=== PATIENT | male | born 1995 | race Caucasian/White ===

== ENCOUNTER 2016-12-19 18:04 | Emergency (ER) | payer OTHER ==
[~2016-12-19] VITALS: Ht 193 cm; Wt 104.1 kg
[2016-12-19 18:20] VITALS: Ht 193 cm; Wt 104.1 kg
--- NOTE | 2016-12-19 19:12 | EMERGENCY ROOM VISIT NOTE ---
History Report prepared by Althea: Jackson Leone Under the Supervision of: Dr. Sil St M.D. First contact with patient: 18:55 Chief Complaint: SORETHROAT Stated Complaint: THROAT BLEEDING History of Present Illness The patient is a 21 year old male who presents to the Emergency Room with complaints of persistent throat bleeding that started prior to arrival. He says that he is not sure when it started, but just noticed it this evening. The patient adds that he has had a sore throat for the past 3 days with some nasal congestion. He says that he has felt very uncomfortable the past few days, but has not taken his temperature. He denies any nose bleeding or any other noted bleeding other than his throat. The patient says that he has taken DayQuil. Source of History: patient Onset: Prior to arrival Position: throat Quality: other (bleeding) Timing: other (persistent) Associated Symptoms: + sorethroat Note: Associated symptoms: Nasal congestion. Denies nose bleed or any other bleeding. Review of Systems See HPI for pertinent positives & negatives. A total of 10 systems reviewed and were otherwise negative. Past Medical & Surgical Medical Problems: (1) No chronic diseases present Family History No pertinent family history Social History Smoking Status: Never Smoker Smokeless Tobacco Use: No Marital Status: single Housing Status: lives with roommate Occupation Status: [employer] student Current/Historical Medications Scheduled Menthol (Mouth-Throat) (Ricola), 1 JONN PO PRN Scheduled PRN Jlipewectszdo-Co-Tc W/ Apap (Vicks Dayquil Severe Cold), 1 DOSE PO BID PRN for cold symptoms Allergies Coded Allergies: Grass (Verified Allergy, Mild, ITCH, 04/06/15) Physical Exam Vital Signs Date Time Temp Pulse Resp B/P (MAP) Pulse Ox O2 Delivery O2 Flow Rate FiO2 12/19/16 19:33 12/19/16 19:31 36.8 77 16 136/86 98 Room Air 12/19/16 18:20 98 Room Air 12/19/16 18:20 36.8 78 20 144/88 98 Room Air Physical Exam Vital signs reviewed. General: Well-appearing 21 year old male, in no significant distress. HEENT: No scleral icterus, PERRLA, neck supple. Ears impacted by cerumen bilaterally. No acute tonsillar swelling or exudate. Cardiovascular: Regular rate and rhythm, no extra sounds. Pulmonary: Clear to auscultation bilaterally, normal work of breathing. Abdomen: Soft, nontender, nondistended, positive bowel sounds. Musculoskeletal: Atraumatic, no peripheral edema. Neurologic: Patient awake alert and oriented x 3, full strength in all 4 extremities. Cranial nerves 2 through 12 grossly intact. Skin: Warm, dry, no rash Medical Decision & Procedures ED Course 1906: Past medical records reviewed. The patient was evaluated in room B4B. A complete history and physical examination was performed. 193: Upon reevaluation, the patient appeared to have improvement of his symptoms. I discussed findings with him. He verbalized agreement of the treatment plan. He was discharged home. Medical Decision Differential diagnosis: Etiologies such as viral syndrome, tonsillitis, streptococcal pharyngitis, mononucleosis, peritonsillar abscess, retropharyngeal abscess, otitis, pneumonia , influenza, as well as others were entertained. This patient was evaluated and appeared to be in no significant distress. There is dark blood adherent to the posterior oropharynx. There is no active bleeding. Rapid strep swab is negative. I suspect the patient is having some mucosal dryness and had a small posterior epistaxis. He was advised to use saline nasal spray. He will use Tylenol and ibuprofen as needed for pain. He will continue ice water gargles if the bleeding reoccurs. Patient will follow- up with [facility] for reevaluation next week. He will return to the ER for worsening of symptoms or any medical concerns. Medication Reconcilliation Current Medication List: was personally reviewed by me Blood Pressure Screening Patient's blood pressure: Elevated blood pressure Blood pressure disposition: Elevated BP felt to be situational Impression Primary Impression: Posterior epistaxis Scribe Attestation The scribe's documentation has been prepared under my direction and personally reviewed by me in its entirety. I confirm that the note above accurately reflects all work, treatment, procedures, and medical decision making performed by me. Departure Information Dispostion Home / Self-Care Referrals No Doctor, Assigned (PCP) [facility] Patient Instructions My [facility] Additional Instructions Diagnosis: Posterior oropharyngeal bleed/epistaxis Please gargle with cold water every hour while awake. Due to his for the next 12 hours. Saline nasal spray to each nostril, 2 sprays every 4 hours as needed to keep the nose moist. Monitor for signs of infection including fever, increased pain or any medical concerns. Follow-up with [facility] for reevaluation this week if symptoms persist. Return to the emergency department for worsening of symptoms or any medical concerns.
[2016-12-19] MEDS ORDERED: PHEN1LIQ93 PO (19:23)
[2016-12-19] MEDS ORDERED: MENT1LOZ4 PO (19:23)
[2016-12-19 19:31] VITALS: BP 136/86; PULSE 77; TEMP 36.8; O2SAT 98
== END 2016-12-19 20:00 | disposition home or self-care (01) ==
LOC: C.EDB 18:06
DX: R04.0 Epistaxis (principal); H61.23 Impacted cerumen, bilateral

== ENCOUNTER 2017-04-12 16:57 | Emergency (ER) | payer OTHER ==
[~2017-04-12] VITALS: Ht 193 cm; Wt 98.0 kg
[~2017-04-12 16:57] MED LIST: MENT1LOZ4 PO
[2017-04-12 16:58] VITALS: Ht 193 cm; Wt 98.0 kg
[2017-04-12] MEDS ORDERED: KETOROLAC TROMETHAMINE 30 MG/ML VIAL IV STA (17:06)
[2017-04-12] MEDS ORDERED: DEXAMETHASONE SOD INJ 4 MG/ML VIAL IV STA (17:06)
[2017-04-12] MEDS ORDERED: DiphenhydrAMINE HCL 50 MG/ML VIAL IV STA (17:06)
[2017-04-12] MEDS ORDERED: PROCHLORPERAZINE 5 MG/ML 2 ML VIAL IV STA (17:06)
[2017-04-12] MEDS ORDERED: SODIUM CHLORIDE 0.9% 1000ML 1,000 ML IV ONE (17:15)
[2017-04-12 17:28] LABS: BASO % 0.1 %; BASO ABS # 0.01 K/uL (0-0.2); EOS % 0.3 %; EOS ABS # 0.04 K/uL (0-0.5); HEMATOCRIT 45.2 % (42-52); IG# 0.03 K/uL (0.00-0.02); LYMPH % 9.6 %; LYMPH ABS # 1.41 K/uL (1.2-3.4); MEAN CELL VOLUME 92.1 fL (80-100); MEAN CORPUSCULAR HEMOGLOBIN 32.6 pg (25-34); MEAN CORPUSCULAR HGB CONC 35.4 g/dl (32-36); MEAN PLATELET VOLUME 9.4 fL (7.4-10.4); MONO % 6.1 %; NEUT % 83.7 %; NEUT ABS # 12.35 K/uL (1.4-6.5); PLATELET COUNT 278 K/uL (130-400); RED CELL DISTRIBUTION WIDTH CV 12.2 % (11.5-14.5); RED CELL DISTRIBUTION WIDTH SD 41.1 fL (36.4-46.3); WHITE BLOOD COUNT 14.74 K/uL (4.8-10.8)
--- NOTE | 2017-04-12 17:28 | EMERGENCY ROOM VISIT NOTE ---
History First contact with patient: 17:02 Chief Complaint: HEADACHE Stated Complaint: HEADACHE History of Present Illness The patient is a 21 year old male who presents to the Emergency Room with complaints of severe, intermittent headache over the last several days. The patient woke up with a headache 3 days ago. It was behind his left eye and rated a 2/10. He took some ibuprofen, which almost completely took the headache away. The following day, it returned. It again improved with ibuprofen. The patient developed a severe headache throughout the day today. He was first seen at urgent care, and sent here for further evaluation. He did have nausea and 1 episode of vomiting. He denies any recent illnesses, fever or chills. No recent travel. He denies any known sick contacts. He does not have a history of migraines. He denies any photophobia. Review of Systems 10 system review performed and negative unless noted in HPI or below Past Medical/Surgical History Medical Problems: (1) No chronic diseases present Family History No pertinent family history Social History Smoking Status: Never Smoker Marital Status: single Housing Status: lives with roommate Occupation Status: [employer] Current/Historical Medications Scheduled Amoxicillin & Pot Clavulanate (Augmentin 875-125 mg), 1 TAB PO BID Saline (Saline Nasal [place]), 1 SPRAY NA Q6H Sumatriptan Succinate (Imitrex), 1 TAB PO Q8H Scheduled PRN Ysrktjsyoyiem-Ml-Rx W/ Apap (Vicks Dayquil Severe Cold), 1 DOSE PO UD PRN for Cold Symptoms Physical Exam Vital Signs Date Time Temp Pulse Resp B/P (MAP) Pulse Ox O2 Delivery O2 Flow Rate FiO2 04/12/17 19:07 36.6 68 16 124/68 98 Room Air 04/12/17 17:54 70 16 128/77 98 Room Air 04/12/17 16:58 36.6 85 16 144/92 97 Room Air Physical Exam VITALS: Vitals are noted on the nurse's note and reviewed by myself. Vital signs stable. GENERAL: 21-year-old male, in obvious discomfort, SKIN: The skin was without rashes, erythema, edema, or bruising. HEAD: Normocephalic atraumatic. EARS: External auditory canals clear, tympanic membranes pearly juares without erythema or effusion bilaterally. EYES: Pupils equal round and reactive to light and accommodation. Conjunctivae without injection, sclerae without icterus. Extraocular movements intact. MOUTH: Mucous membranes moist. Tonsils are not enlarged. Pharynx without erythema or exudate. Uvula midline. Airway patent. Tongue does not deviate. NECK: Supple without nuchal rigidity. No lymphadenopathy. Cervical spine is nontender. No JVD. HEART: Regular rate and rhythm without murmurs gallops or rubs. LUNGS: Clear to auscultation bilaterally without wheezes, rales or rhonchi. No accessory muscle use. ABDOMEN: Positive bowel sounds x 4.Soft, nontender, without organomegaly. No guarding or rebound tenderness. MUSCULOSKELETAL: No muscle atrophy, erythema, or edema noted. Strength 5/5 throughout. NEURO: Patient was alert and oriented to person place and time. Cranial nerves grossly intact. Cerebellar function intact. Normal sensation to touch. No focal neurological deficits. Medical Decision & Procedures ER Provider Diagnostic Interpretation: CT head without contrast IMPRESSION: 1. No acute intracranial abnormality. 2. Evidence of acute sinusitis extensively involving the ethmoid air cells as well as the right sphenoid sinus and left frontal sinus. Ethmoid air cell septations appear somewhat indistinct, however, this finding is equivocal. If the patient is immunocompromised, this could raise concern for acute invasive fungal sinusitis. Electronically signed by: Yariel Mathew M.D. 04/12/2017 5:50 PM Dictated Date/Time: 04/12/2017 5:47 PM The status of this report is Signed. Draft = Not yet reviewed or approved by Radiologist. Signed = Reviewed and approved by Radiologist. Laboratory Results 04/12/17 17:15 Red Blood Count 4.91, Mean Corpuscular Volume 92.1, Mean Corpuscular Hemoglobin 32.6, Mean Corpuscular Hemoglobin Concent 35.4, Mean Platelet Volume 9.4, Neutrophils (%) (Auto) 83.7, Lymphocytes (%) (Auto) 9.6, Monocytes (%) (Auto) 6.1, Eosinophils (%) (Auto) 0.3, Basophils (%) (Auto) 0.1, Neutrophils # (Auto) 12.35, Lymphocytes # (Auto) 1.41, Monocytes # (Auto) 0.90, Eosinophils # (Auto) 0.04, Basophils # (Auto) 0.01 04/12/17 17:15 Test 04/12/17 17:15 White Blood Count 14.74 K/uL (4.8-10.8) Red Blood Count 4.91 M/uL (4.7-6.1) Hemoglobin 16.0 g/dL (14.0-18.0) Hematocrit 45.2 % (42-52) Mean Corpuscular Volume 92.1 fL (80-100) Mean Corpuscular Hemoglobin 32.6 pg (25-34) Mean Corpuscular Hemoglobin Concent 35.4 g/dl (32-36) Platelet Count 278 K/uL (130-400) Mean Platelet Volume 9.4 fL (7.4-10.4) Neutrophils (%) (Auto) 83.7 % Lymphocytes (%) (Auto) 9.6 % Monocytes (%) (Auto) 6.1 % Eosinophils (%) (Auto) 0.3 % Basophils (%) (Auto) 0.1 % Neutrophils # (Auto) 12.35 K/uL (1.4-6.5) Lymphocytes # (Auto) 1.41 K/uL (1.2-3.4) Monocytes # (Auto) 0.90 K/uL (0.11-0.59) Eosinophils # (Auto) 0.04 K/uL (0-0.5) Basophils # (Auto) 0.01 K/uL (0-0.2) RDW Standard Deviation 41.1 fL (36.4-46.3) RDW Coefficient of Variation 12.2 % (11.5-14.5) Immature Granulocyte % (Auto) 0.2 % Immature Granulocyte # (Auto) 0.03 K/uL (0.00-0.02) Erythrocyte Sedimentation Rate 24 mm/hr (0-14) Anion Gap 5.0 mmol/L (3-11) Est Creatinine Clear Calc Drug Dose 154.2 ml/min Estimated GFR () 135.5 Estimated GFR (Non- 116.9 BUN/Creatinine Ratio 16.8 (10-20) Calcium Level 9.5 mg/dl (8.5-10.1) Total Bilirubin 0.5 mg/dl (0.2-1) Aspartate Amino Transf (AST/SGOT) 14 U/L (15-37) Alanine Aminotransferase (ALT/SGPT) 20 U/L (12-78) Alkaline Phosphatase 104 U/L (45-117) Total Protein 8.7 gm/dl (6.4-8.2) Albumin 4.4 gm/dl (3.4-5.0) Globulin 4.3 gm/dl (2.5-4.0) Albumin/Globulin Ratio 1.0 (0.9-2) Lyme Disease IgG Antibody NEG (NEG) Lyme Disease IgM Antibody NEG (NEG) Medications Administered Medications (Trade) Dose Ordered Sig/Kim Route Start Time Stop Time Status Last Admin Dose Admin Ketorolac Tromethamine (Toradol Inj) 30 mg NOW STAT IV 04/12/17 17:06 04/12/17 17:08 DC 04/12/17 17:22 30 MG Prochlorperazine Edisylate (Compazine Inj) 10 mg NOW STAT IV 04/12/17 17:06 04/12/17 17:08 DC 04/12/17 17:20 10 MG Diphenhydramine HCl (Benadryl Inj) 25 mg NOW STAT IV 04/12/17 17:06 04/12/17 17:08 DC 04/12/17 17:18 25 MG Sodium Chloride 1,000 ml @ 999 mls/hr Q1H1M ONCE IV 04/12/17 17:15 04/12/17 18:15 DC 04/12/17 17:18 999 MLS/HR Dexamethasone Sodium Phosphate (Decadron Inj) 10 mg NOW STAT IV 04/12/17 17:06 04/12/17 17:08 DC 04/12/17 17:20 10 MG Amoxicillin/ Clavulanate Potassium (Augmentin Tab) 875 mg ONE ONCE PO 04/12/17 18:15 04/12/17 18:16 DC 04/12/17 19:07 875 MG Sodium Chloride (Scott Nasal [place]) 2 sprays NOW ONCE NA 04/12/17 18:15 04/12/17 18:16 DC 04/12/17 19:07 2 SPRAYS ED Course Patient was seen and examined Vital signs including blood pressure were reviewed medications list was verified with patient Labs were obtained, and a saline lock was established The patient was medicated with Toradol, Benadryl, Compazine and Decadron. He was hydrated with 1 L of normal saline. Upon reevaluation, the patient was feeling much better. We discussed the results of his workup. He voiced understanding. The patient was again reassessed with my supervising physician. We attempted to contact the patient's mother. She did not answer. We thoroughly discussed a lumbar puncture with the patient. He declined at this time as he was feeling better. The patient was given 1 dose of Augmentin. I reviewed discharge instructions the patient. They voiced understanding and had no further questions. Medical Decision Differential includes: Cluster headache, migraine, Acute intracranial bleed, trauma, meningitis, encephalitis, increased intracranial pressure, mass or mass effect, facial or dental infection, temporal arteritis, CVA, TIA, acute hypertensive emergency, sinusitis, carbon monoxide exposure. This patient is a 21-year-old male presents to the emergency department with complaints of a severe intermittent headache over the last several days. On exam, he was obviously uncomfortable. He did not have any nuchal rigidity to suggest meningitis. The patient's workup reveals mild leukocytosis. A CT of the head was performed consistent with an acute sinusitis. This was discussed at length with the patient. We attempted to contact the mother, however she did not answer the phone. My supervising physician and I thoroughly discussed the possibility of a lumbar puncture to rule out meningitis. The patient had excellent symptomatic relief in the emergency department; therefore, he declined at this time. He will be covered with a ten-day course of Augmentin, and follow up with an ear nose and throat doctor. He was cautioned to return immediately to the emergency Department if he begins running a fever, the headache is severe and returns or he has any pain in his neck or back. He is comfortable with this plan, and was discharged in good condition This chart was completed in part utilizing [employer] Speech Voice Recognition software. Attempts were made to minimize the grammatical errors, random word insertions, pronoun errors and incomplete sentences. Any formal questions or concerns about the content, text or information contained within the body of this dictation should be directly addressed to the provider for clarification. Medication Reconcilliation Current Medication List: was personally reviewed by me Blood Pressure Screening Patient's blood pressure: Elevated blood pressure Blood pressure disposition: Did not require urgent referral Impression Primary Impression: Headache Additional Impression: Sinusitis Departure Information Dispostion Home / Self-Care Condition GOOD Prescriptions Saline (SALINE NASAL SPRAY) 0.65 % Spr 1 SPRAY NA Q6H, #1 BTL Prov: Michelle Leahy PA-C 04/12/17 Sumatriptan Succinate (IMITREX) 50 Mg Tab 1 TAB PO Q8H for Headache, #15 TAB 1 Refill Prov: Michelle Leahy PA-C 04/12/17 Amoxicillin & Pot Clavulanate (Augmentin 875-125 mg) 1 Tab Tab 1 TAB PO BID for 10 Days, #20 TAB Prov: Michelle Leahy PA-C 04/12/17 Referrals [facility] (PCP) Magali Mendes M.D. Patient Instructions ED Sinusitis Abx Tx, My [facility] Additional Instructions You had been evaluated in the emergency department for a severe headache. It was found that you have a sinusitis on the CAT scan that was performed. Please take the entire course of antibiotics. Take ibuprofen 600 mg every 6 hours as needed for headache. You may also take Imitrex 1 tab every 8 hours as needed for headache. Please call the ear nose and throat doctor on Friday morning for a follow-up appointment. Please do not hesitate to return immediately to the emergency department for any new, worsening or concerning symptoms; especially, returning headache, neck pain, back pain or fever. If these symptoms develop, you may need further testing. School Instructions Return To School: 2 days Problem Qualifiers
--- NOTE | 2017-04-12 17:51 | DIAGNOSTIC IMAGING REPORT ---
HEAD WITHOUT CONTRAST (CT) CLINICAL HISTORY: 21 years-old Male presenting with severe DUBNAR behind L eye vomiting. TECHNIQUE: Multidetector CT imaging of the head was performed without the use of intravenous contrast. IV contrast: None. A dose lowering technique was used consistent with the principles of ALARA (as low as reasonably achievable). COMPARISON: None. CT DOSE (mGy.cm): The estimated cumulative dose is 601.98 mGy.cm. FINDINGS: Child Care Coordinator topogram: Unremarkable. Ventricles and sulci normal in size. Brain parenchyma normal in appearance with preserved juares-white differentiation. No mass effect or midline shift. No hemorrhage or acute territorial infarct. No extra-axial fluid collection. Extensive opacification of ethmoid air cells and left frontal sinus with aerated secretions. This also involves the right sphenoid sinus. Ethmoid air cells are rather indistinct. No other katy evidence of osseous erosion. IMPRESSION: 1. No acute intracranial abnormality. 2. Evidence of acute sinusitis extensively involving the ethmoid air cells as well as the right sphenoid sinus and left frontal sinus. Ethmoid air cell septations appear somewhat indistinct, however, this finding is equivocal. If the patient is immunocompromised, this could raise concern for acute invasive fungal sinusitis. Electronically signed by: Yariel Mathew M.D. 04/12/2017 5:50 PM Dictated Date/Time: 04/12/2017 5:47 PM
[2017-04-12 17:52] LABS: ALBUMIN 4.4 gm/dl (3.4-5.0); CALCIUM 9.5 mg/dl (8.5-10.1); CREATININE 0.93 mg/dl (0.60-1.40); POTASSIUM 3.5 mmol/L (3.5-5.1)
[2017-04-12 17:55] LABS: TOTAL PROTEIN 8.7 gm/dl (6.4-8.2)
[2017-04-12] MEDS ORDERED: SODIUM CHLORIDE 0.65% NA SOLN 45 ML (OCEAN) ONE (18:15)
[2017-04-12] MEDS ORDERED: AMOXICILLIN/CLAVULANATE TAB 875 MG TAB PO ONE (18:15)
[2017-04-12] MEDS ORDERED: SUMA50TA15 PO (18:25)
[2017-04-12] MEDS ORDERED: SALI1SPR3 (18:25)
[2017-04-12] MEDS ORDERED: AMOX875T PO (18:25)
[2017-04-12 19:07] VITALS: BP 124/68; PULSE 68; TEMP 36.6; O2SAT 98
[2017-04-12] MEDS ORDERED: PHEN1LIQ93 PO (19:23)
== END 2017-04-12 19:11 | disposition home or self-care (01) ==
LOC: C.EDB 16:58 → C.EDC 19:11
DX: R51 Headache (principal); J01.90 Acute sinusitis, unspecified

== ENCOUNTER 2017-04-14 10:25 | Emergency (ER) | payer OTHER ==
[~2017-04-14] VITALS: Ht 193 cm; Wt 100.8 kg
[~2017-04-14 10:25] MED LIST changes: +AMOX875T PO; -MENT1LOZ4 PO; +PHEN1LIQ93 PO; +SALI1SPR3; +SUMA50TA15 PO
[2017-04-14 10:32] VITALS: Ht 193 cm; Wt 100.8 kg
[2017-04-14] MEDS ORDERED: SODIUM CHLORIDE 0.9% 1000ML 1,000 ML IV STA (11:35)
[2017-04-14] MEDS ORDERED: METOCLOPRAMIDE HCL INJ 5 MG/ML 2 ML VIAL IV STA (11:35)
[2017-04-14] MEDS ORDERED: ACETAMINOPHEN 500 MG TAB PO STA (11:35)
[2017-04-14] MEDS ORDERED: DiphenhydrAMINE HCL 50 MG/ML VIAL IV STA (11:35)
[2017-04-14] MEDS ORDERED: KETOROLAC TROMETHAMINE 30 MG/ML VIAL IV STA (11:35)
--- NOTE | 2017-04-14 11:43 | EMERGENCY ROOM VISIT NOTE ---
History Report prepared by Althea: Bay Parmar Under the Supervision of: Dr. Evert Merlos M.D. First contact with patient: 11:13 Chief Complaint: HEADACHE Stated Complaint: HEADACHE,STIFF NECK History of Present Illness The patient is a 21 year old white male without a past medical history who presents to the ED with a cc of a headache beginning 1.5 hours ago. Positive neck stiffness and nausea. Negative fevers, sore throat, cough, chest pain, shortness of breath, melena, hematochezia, diarrhea, or abnormal urinary symptoms. The patient was seen in the ER two days ago for similar symptoms. He received a CT of his head that showed some sinusitis without any other acute process. His white blood cell count was 14,000 as well. He was given Augmentin and Imitrex. His headache felt better until this morning. He had been awake for about an hour when he had a sudden onset of this headache. He has been taking his antibiotic as prescribed since yesterday. He also tried taking an Imitrex this morning with no relief. Source of History: patient Onset: 1.5 hours ago Position: head Symptom Intensity: moderate Quality: ache Timing: constant Associated Symptoms: + neck pain, + nausea, No fevers, No sorethroat, No cough, No chest pain, No SOB, No melena, No hematochezia, No diarrhea, No urinary symptoms Review of Systems See HPI for pertinent positives and negatives. A total of ten systems were reviewed and were otherwise negative. Past Medical & Surgical Medical Problems: (1) No chronic diseases present Family History No pertinent family history Social History Smoking Status: Never Smoker Smokeless Tobacco Use: No Alcohol Use: occasionally Marital Status: single Housing Status: lives with roommate Occupation Status: [employer] student Current/Historical Medications Scheduled Amoxicillin & Pot Clavulanate (Augmentin 875-125 mg), 1 TAB PO BID Saline (Saline Nasal [place]), 1 SPRAY NA Q6H Sumatriptan Succinate (Imitrex), 1 TAB PO Q8H Allergies Coded Allergies: Grass (Verified Allergy, Mild, ITCH, 04/14/17) Physical Exam Vital Signs Date Time Temp Pulse Resp B/P (MAP) Pulse Ox O2 Delivery O2 Flow Rate FiO2 04/14/17 12:27 98 Room Air 04/14/17 12:26 36.5 63 20 121/80 97 Room Air 04/14/17 10:32 36.7 79 18 133/72 97 Room Air Physical Exam GENERAL: Awake, alert, well-appearing, NAD HENT: Normocephalic, atraumatic. Left frontal and maxillary TTP without erythema or swelling. EYES: Conjunctival infection on the left. Sclera non-icteric. No proptosis, hyphema, or hypopyon. EOMI painless. NECK: Supple. No nuchal rigidity. Full ROM of the neck with some trace tenderness to the left with complete movement to the right. RESPIRATORY: CTAB, no rhonchi, wheezing, crackles CARDIAC: RRR, no MRG ABDOMEN: Soft, NTND, BS+ MSK: No chest wall TTP, no LE edema NEURO: GCS 15, CN 2-12 intact, moves all 4s on command SKIN: No rash or jaundice noted. Medical Decision & Procedures Laboratory Results 04/14/17 11:45 Red Blood Count 4.60, Mean Corpuscular Volume 93.7, Mean Corpuscular Hemoglobin 32.6, Mean Corpuscular Hemoglobin Concent 34.8, Mean Platelet Volume 9.4, Neutrophils (%) (Auto) 48.1, Lymphocytes (%) (Auto) 41.6, Monocytes (%) (Auto) 9.8, Eosinophils (%) (Auto) 0.3, Basophils (%) (Auto) 0.1, Neutrophils # (Auto) 3.22, Lymphocytes # (Auto) 2.79, Monocytes # (Auto) 0.66, Eosinophils # (Auto) 0.02, Basophils # (Auto) 0.01 04/14/17 11:45 Test 04/14/17 11:45 White Blood Count 6.71 K/uL (4.8-10.8) Red Blood Count 4.60 M/uL (4.7-6.1) Hemoglobin 15.0 g/dL (14.0-18.0) Hematocrit 43.1 % (42-52) Mean Corpuscular Volume 93.7 fL (80-100) Mean Corpuscular Hemoglobin 32.6 pg (25-34) Mean Corpuscular Hemoglobin Concent 34.8 g/dl (32-36) Platelet Count 281 K/uL (130-400) Mean Platelet Volume 9.4 fL (7.4-10.4) Neutrophils (%) (Auto) 48.1 % Lymphocytes (%) (Auto) 41.6 % Monocytes (%) (Auto) 9.8 % Eosinophils (%) (Auto) 0.3 % Basophils (%) (Auto) 0.1 % Neutrophils # (Auto) 3.22 K/uL (1.4-6.5) Lymphocytes # (Auto) 2.79 K/uL (1.2-3.4) Monocytes # (Auto) 0.66 K/uL (0.11-0.59) Eosinophils # (Auto) 0.02 K/uL (0-0.5) Basophils # (Auto) 0.01 K/uL (0-0.2) RDW Standard Deviation 42.1 fL (36.4-46.3) RDW Coefficient of Variation 12.4 % (11.5-14.5) Immature Granulocyte % (Auto) 0.1 % Immature Granulocyte # (Auto) 0.01 K/uL (0.00-0.02) Anion Gap 6.0 mmol/L (3-11) Est Creatinine Clear Calc Drug Dose 149.4 ml/min Estimated GFR () 130.4 Estimated GFR (Non- 112.5 BUN/Creatinine Ratio 17.5 (10-20) Calcium Level 8.9 mg/dl (8.5-10.1) Laboratory results reviewed by me Medications Administered Medications (Trade) Dose Ordered Sig/Kim Route Start Time Stop Time Status Last Admin Dose Admin Sodium Chloride 1,000 ml @ 999 mls/hr Q1H1M STAT IV 04/14/17 11:35 04/14/17 12:35 DC 04/14/17 11:56 999 MLS/HR Metoclopramide HCl (Reglan Inj) 10 mg NOW STAT IV 04/14/17 11:35 04/14/17 11:37 DC 04/14/17 12:00 10 MG Ketorolac Tromethamine (Toradol Inj) 30 mg NOW STAT IV 04/14/17 11:35 04/14/17 11:37 DC 04/14/17 11:58 30 MG Acetaminophen (Tylenol Tab) 1,000 mg NOW STAT PO 04/14/17 11:35 04/14/17 11:37 DC 04/14/17 11:57 1,000 MG Diphenhydramine HCl (Benadryl Inj) 50 mg NOW STAT IV 04/14/17 11:35 04/14/17 11:37 DC 04/14/17 11:59 50 MG ED Course 1113: The patient was evaluated in room B11. A complete history and physical exam was performed. 1333: Upon reevaluation, the patient is feeling better. 1403: I reevaluated the patient. Discussed results and discharge instructions: He verbalized understanding and agreement. The patient is ready for discharge. Medical Decision The patient is a 21 year old white male without a past medical history who presents to the ED with a cc of a headache beginning 1.5 hours ago. Positive neck stiffness and nausea. Negative fevers, sore throat, cough, chest pain, shortness of breath, melena, hematochezia, diarrhea, or abnormal urinary symptoms. Differential diagnosis: Etiologies such as migraine headache, meningitis, sinusitis, CO exposure, ICH, SAH, infection, tumor, headache, sinus thrombosis, arterial dissection, as well as others were entertained. Patient was seen and evaluated at the bedside. Patient did have an acute onset of headache. Patient had no focal neurologic deficits. Patient was recently diagnosed with a sinusitis and has been taking Augmentin for the last day and a half. Patient did complain of some mild dizziness in his neck. On exam the patient only has very mild pain with right lateral range of motion in the left side of his neck but doesn't have any true stiffness or nuchal rigidity. Patient has a nonfocal neurologic exam. Patient did have blood work completed. Given the patient had a recent CT brain with no acute deficit a repeat CT was not obtained at this time. Patient is treated symptomatically in his headache resolved. Patient's white blood cell count was 6000. Given the acute onset of a headache and resolution makes this less likely a meningitis. The patient does have a risk factor with sinusitis. I do not believe that he requires a lumbar puncture at this time but was told to return if he has any worsening or similar symptoms. Patient was amenable to this plan of care. Patient was able tolerate by mouth. Patient was deemed suitable for outpatient follow-up and treatment at this time. Patient was given strict follow-up, discharge, and return precautions. All questions were answered. Patient was deemed suitable for outpatient follow-up at this time. Patient agreed with the plan of care and was safely discharged home. Medication Reconcilliation Current Medication List: was personally reviewed by me Blood Pressure Screening Patient's blood pressure: Normal blood pressure Blood pressure disposition: Did not require urgent referral Impression Primary Impression: Migraine Additional Impression: Sinusitis Scribe Attestation The scribe's documentation has been prepared under my direction and personally reviewed by me in its entirety. I confirm that the note above accurately reflects all work, treatment, procedures, and medical decision making performed by me. Departure Information Dispostion Home / Self-Care Referrals No Doctor, Assigned (PCP) Forms HOME CARE DOCUMENTATION FORM, IMPORTANT VISIT INFORMATION Patient Instructions ED Sinusitis Abx Tx, Headache Pain, My [facility] Additional Instructions Please return to the emergency department if you have worsening or recurrent symptoms not amenable to at-home treatment. Please call for a follow-up appointment with her primary care physician. Please take your medications as prescribed. If you have other concerns and/or complaints please feel free to also call your primary care physician's office or return the ED for further evaluation, management, and treatment. You may take 600 mg Ibuprofen every 6 hours as needed for pain with food. You may take tylenol 1000 mg every 6 hours as needed for pain. You may take motrin and tylenol separately or at the same time. You may also try taking a decongestant but only take for no more than 2 consecutive days. Also consider a nasal saline spray. Take your medications as prescribed. If taking an antibiotic consider taking a probiotic and/or eating yogurt, but at the least, please take with food as it can cause upset stomach. If culture results are not available at discharge, if they are positive for concern of infection, you will be informed of the results as soon as they are available. If you were seen between 11pm and 7AM all radiology reads will be re-read by our in house staff. If any major discrepancies are discovered, you will be notified. You have been examined and treated today on an emergency basis only. This is not a substitute for, or an effort to provide, complete comprehensive medical care. It is impossible to recognize and treat all injuries or illnesses in a single emergency department visit. It is therefore important that you follow up closely with [facility], your PCP, and/or your specialist(s). Call as soon as possible for an appointment. Thank you for your time and consideration. I look forward to speaking with you again soon. Please don't hesitate to call us if you have any questions. Problem Qualifiers Primary Impression: Migraine Migraine type: unspecified Status migrainosus presence: without status migrainosus Intractability: not intractable Qualified Codes: G43.909 - Migraine, unspecified, not intractable, without status migrainosus Additional Impression: Sinusitis Sinusitis location: frontal Chronicity: subacute Qualified Codes: J01.10 - Acute frontal sinusitis, unspecified
[2017-04-14 12:05] LABS: BASO % 0.1 %; BASO ABS # 0.01 K/uL (0-0.2); EOS % 0.3 %; EOS ABS # 0.02 K/uL (0-0.5); HEMATOCRIT 43.1 % (42-52); IG# 0.01 K/uL (0.00-0.02); LYMPH % 41.6 %; LYMPH ABS # 2.79 K/uL (1.2-3.4); MEAN CELL VOLUME 93.7 fL (80-100); MEAN CORPUSCULAR HEMOGLOBIN 32.6 pg (25-34); MEAN CORPUSCULAR HGB CONC 34.8 g/dl (32-36); MEAN PLATELET VOLUME 9.4 fL (7.4-10.4); MONO % 9.8 %; MONO ABS # 0.66 K/uL (0.11-0.59); NEUT % 48.1 %; NEUT ABS # 3.22 K/uL (1.4-6.5); PLATELET COUNT 281 K/uL (130-400); RED CELL DISTRIBUTION WIDTH CV 12.4 % (11.5-14.5); RED CELL DISTRIBUTION WIDTH SD 42.1 fL (36.4-46.3); WHITE BLOOD COUNT 6.71 K/uL (4.8-10.8)
[2017-04-14 12:22] LABS: CALCIUM 8.9 mg/dl (8.5-10.1); CREATININE 0.96 mg/dl (0.60-1.40); POTASSIUM 3.7 mmol/L (3.5-5.1)
[2017-04-14 12:26] VITALS: BP 121/80; PULSE 63; TEMP 36.5; O2SAT 97
[2017-04-14 12:27] VITALS: O2SAT 98
== END 2017-04-14 14:06 | disposition home or self-care (01) ==
LOC: C.EDB 10:26
DX: G43.909 Migraine, unspecified, not intractable, without status migrainosus (principal); J01.10 Acute frontal sinusitis, unspecified